=== PATIENT | female | born 1995 | race Caucasian/White ===

== ENCOUNTER 2021-12-20 14:33 | Emergency (ER) | payer OTHER ==
[~2021-12-20] VITALS: Ht 172.7 cm; Wt 97.5 kg
[2021-12-20 14:42] VITALS: BP 141/90
--- NOTE | 2021-12-20 14:56 | NUR ---
joshua geiger assessing pt in triage room at this time
--- NOTE | 2021-12-20 15:11 | NUR ---
NO NURSING CARE RENDERED, Patient discharged with v/s stable. Written and verbal after care instructions given and explained. Patient alert, oriented and verbalized understanding of instructions. Ambulatory with steady gait. All questions addressed prior to discharge. ID band removed. Patient advised to follow up with PMD. NO Rx given. Patient educated on indication of medication including possible reaction and side effects. Opportunity to ask questions provided and answered. PT LEFT DISCHARGED INFO AT BEDSIDE, ER/MD DR MIRANDA NOTIFTED
--- NOTE | 2021-12-20 15:11 | NUR ---
Note [email or web address] in EDM - 12/20/21 at 1623 by [email or web address] NO NURSING CARE RENDERED, Patient discharged with v/s stable. Written and verbal after care instructions given and explained. Patient alert, oriented and verbalized understanding of instructions. Ambulatory with steady gait. All questions addressed prior to discharge. ID band removed. Patient advised to follow up with PMD. NO Rx given. Patient educated on indication of medication including possible reaction and side effects. Opportunity to ask questions provided and answered.
== END 2021-12-20 15:10 | disposition home or self-care (01) ==
LOC: MED 14:33
DX: H00.014 Hordeolum externum left upper eyelid (principal)
CPT/HCPCS: 99281